=== PATIENT | male | born 1965 | race Hispanic/Latino ===

== ENCOUNTER → 2020-11-22 | Outpatient (CLI) | payer BC ==
[~2020-11-22] MED LIST: IOHEXOL-350 75 ML VIAL IV ONE
== END | disposition home or self-care (01) ==
LOC: RAH 08:51
PROVIDERS: ATTEND Urology
DX: K80.20 Calculus of gallbladder without cholecystitis without obstruction (principal); N40.0 Benign prostatic hyperplasia without lower urinary tract symptoms; R31.0 Gross hematuria
CPT/HCPCS: 74176; 74178